=== PATIENT | male | born 1965 | race Caucasian/White ===

== ENCOUNTER 2021-01-05 12:45 | Inpatient (IN) | payer BC, OTHER ==
[~2021-01-05] VITALS: Ht 154.2 cm; Wt 79.4 kg
[2021-01-05] MEDS ORDERED: LORAZEPAM INJ 2 MG/ML VIAL ONE ×2 (12:59→14:30)
[2021-01-05] MEDS ORDERED: LORAZEPAM INJ 2 MG/ML VIAL IVP ONE (13:00)
[2021-01-05] MEDS ORDERED: IV NS 0.9% 1,000 ML BAG IV ONE ×2 (13:00→14:30)
[2021-01-05] MEDS ORDERED: ROSU40TA23 PO (13:02)
[2021-01-05] MEDS ORDERED: CYAN1TAB14 PO (13:02)
[2021-01-05] MEDS ORDERED: POTA-88 PO (13:02)
[2021-01-05] MEDS ORDERED: CLON0.2T PO (13:02)
[2021-01-05 13:12] LABS: BASOPHILS % (AUTO) 0.4 % (0.0-2.0); EOSINOPHILS % (AUTO) 1.7 % (0.0-6.0); HEMATOCRIT 39 % (39-51); HEMOGLOBIN 12.8 g/dL (13.5-17.5); LYMPHOCYTES # (AUTO) 1.2 /CMM (0.8-4.8); LYMPHOCYTES % (AUTO) 33.7 % (20.0-44.0); MEAN CORPUSCULAR HGB CONC 33 g/dl (31.0-36.0); MEAN CORPUSCULAR VOLUME 96 fL (80-96); MONOCYTES # (AUTO) 0.3 /CMM (0.1-1.30); MONOCYTES % (AUTO) 9.5 % (2.0-12.0); NEUTROPHILS % (AUTO) 54.7 % (43.0-81.0); PLATELET COUNT (AUTO) 136 /CMM (150-450); RED BLOOD CELL COUNT(AUTO) 4.03 MIL/uL (4.5-6.0); WHITE BLOOD COUNT (AUTO) 3.6 K/uL (4.3-11.0)
--- NOTE | 2021-01-05 13:20 | NUR ---
ELIZABETH FROM THE STREET TO ER BED 12. AAOX4. NOT IN RESP DISTRESS, BREATHING EVEN AND UNLABORED. BROUGHT IN FOR HAVING A WITNESSED SEIZURE. SEIZURE WAS DESCRIBED TONIC CLONIC. EMT REPORTS GIVING THE PATIENT VERSED 5MG IM. PT REPORTS THAT HE IS A DAILY DRINKER AND HAD TO STOP DRINKING BECAUSE HE HAD A KIDNEY BIOPSY LAST SATURDAY. PT IS NOTED TACHYCARDIC, HYPERTENSIVE AND NOTED TREMORS. MD WAS AT TH BEDSIDE FOR EVAL. ORDERS RECIEVED, NOTED AND CARRIED OUT. IV LINE ESTABLISHED ON L WRIST 20G. PHLEB HAYDER THE BLOOD. PT ON MONITOR AND SEIZURE PRECAUTION. WILL CONTINUE TO MONITOR
[2021-01-05 13:32] LABS: CALCIUM, SERUM 8.8 mg/dL (8.5-10.1); CARBON DIOXIDE 15 mmol/L (21-32); CHLORIDE 97 mmol/L (98-107); CREATININE 1.6 mg/dL (0.6-1.3); GLUCOSE 144 mg/dL (74-106); POTASSIUM 3.3 mmol/L (3.5-5.1); SODIUM SERUM 137 mmol/L (136-145); UREA NITROGEN, BLOOD 12 mg/dL (7-18)
--- NOTE | 2021-01-05 13:33 | NUR ---
TO CT ON CELESTINO
[2021-01-05 13:40] LABS: ALANINE AMINOTRANSFERASE 35 U/L (12-78); ALBUMIN 3.7 g/dL (3.4-5.0); ALKALINE PHOSPHATASE 52 U/L (46-116); ASPARTATE AMINOTRANSFERASE 36 U/L (15-37); BILIRUBIN,DIRECT 0.5 mg/dL (0.0-0.2); BILIRUBIN,TOTAL 2.9 mg/dL (0.2-1.0); TOTAL PROTEIN, SERUM 7.4 g/dL (6.4-8.2)
[2021-01-05 13:41] LABS: ALCOHOL, BLOOD < 3 mg/dL (0-0)
[2021-01-05] MEDS: LORAZEPAM INJ 2 MG/ML VIAL IV ONE (14:32)
--- NOTE | 2021-01-05 14:32 | NUR ---
RECEIVED ORDER TO GIVEN ANOTHER DOSE OF ATIVAN 1MG IV. PT ALREADY RECEIVED A DOSE OF ATIVAN 1MG AND PATIENT IS SEDATED FROM THE FIRST DOSE. MD MADE AWARE. ATIVAN 1MG WAS NOT GIVEN.
--- NOTE | 2021-01-05 16:48 | NUR ---
PT AMBULATED TO BATHROOM W/ SBA. URINE COLLECTED AND SENT TO LAB
[2021-01-05] MEDS ORDERED: MAG HYDROX/AL HYDROX/SIMETH 30 ML UDC PO PRN ×2 (19:00→19:30)
[2021-01-05] MEDS ORDERED: ONDANSETRON HCL/PF 4 MG/2 ML VIAL IVP PRN ×2 (19:00→19:30)
[2021-01-05] MEDS ORDERED: ACETAMINOPHEN 325 MG TABLET PO PRN ×2 (19:00→19:30)
[2021-01-05] MEDS ORDERED: Z GUARD REMEDY 2 OZ OINT TP PRN (19:00)
[2021-01-05] MEDS ORDERED: MAGNESIUM HYDROXIDE 30 ML UDC PO PRN ×2 (19:00→19:30)
[2021-01-05] MEDS ORDERED: LORAZEPAM INJ 2 MG/ML VIAL IV PRN ×2 (19:00→19:30)
--- NOTE | 2021-01-05 19:06 | NUR ---
pt in bed resting with his eyes close. no distress noted.
--- NOTE | 2021-01-05 19:22 | NUR ---
ATIVAN 1MG WASTED ON OMNICELL WELL IN MED DESTROYER BUT ERROR RECORDING 0MG. WASTE WAS WITNESSED BY SAMUEL AMOS
[2021-01-05] MEDS ORDERED: CLONIDINE HCL 0.1 MG TABLET ONE (19:42)
[2021-01-05] MEDS: CLONIDINE HCL 0.1 MG TABLET PO SCH (19:52)
--- NOTE | 2021-01-06 02:30 | NUR ---
REPORT CALLED TO STUDENT DEVELOPMENT ADVISORSAMUEL CONNELL. WILL TRANSPORT PT VIA [facility].
--- NOTE | 2021-01-06 02:46 | NUR ---
PT TRANSFERED PER [facility]
[2021-01-06 02:47] VITALS: BP 149/87
[2021-01-06] MEDS: IV 1/2NS 1000 ML 1,000 ML IV PRN ×2 (04:02→21:47)
[2021-01-06 04:58] VITALS: BP 149/87
[2021-01-06 07:56] VITALS: BP 143/94
--- NOTE | 2021-01-06 08:00 | NUR ---
RECEIVED PT AAOX4. NOT IN RESP DISTRESS, BREATHING EVEN AND UNLABORED ON ROOM AIR. PT REPORTS THAT HE IS A DAILY DRINKER AND HAD TO STOP DRINKING BECAUSE HE HAD A KIDNEY BIOPSY LAST SATURDAY. PT IS NOTED TO HAVE MILD HAND TREMORS. IV LINE HEPLOCK ON L WRIST 20G. WITH IVF 1/2 NS RUNNING AT 75 ML/HR INFUSING WELL. PT ON MONITOR FOR SEIZURE PRECAUTION. WITH PADDED BILATERAL SIDERAILS. AWAITING FOR NEURO CONSULT.WILL CONTINUE TO MONITOR
[2021-01-06] MEDS: ATORVASTATIN 40 MG TABLET PO SCH (09:19)
[2021-01-06] MEDS: CLONIDINE HCL 0.1 MG TABLET PO SCH ×2 (09:19→21:33)
[2021-01-06] MEDS: THIAMINE HCL 100 MG TABLET PO SCH (09:19)
[2021-01-06] MEDS: FOLIC ACID 1 MG TABLET PO SCH (09:19)
[2021-01-06] MEDS: CYANOCOBALAMIN 100 MCG TABLET PO SCH (10:57)
--- NOTE | 2021-01-06 11:24 | NUR ---
Jewelry Making Instructor Consult: SW consult requested by ICU staff for a 55 year old Bulgarian male. JORDAN met with pt at ICU room [address] [place] [address] and conducted an assessment at 10:45 am. Pt made good eye contact during the assessment. Pt. alert and oriented x4 ( time, place, self, and situation). Pt appears to be in a calm mood and distress affect. Pt.'s speech is normal limits without limitations. Pt is responsive during the Pt is groomed and had medial gown. Patient denies hx of substance use. Pt. denies suicidal and homicidal ideation. Pt denies any visual or auditory hallucinations as well. Pt. denies hx of psychiatric hospitalization and psychotropic medications. Pt reports being currently employed ([employer]) and currently resides at an apartment ([address] [place] [id number]- [phone]) with roommate (Nguyen Dodge). Pt reports other support system is up [place], but did not want to explain further. Pt reports not remembering the number and his telephone is at home. Pt also verified current insurance plan ([employer], PPO, [id number]). Pt ambulates with steady gait and has no DME. Pt states he has a plan to return home and continue to work once being medically discharged. SW reassured pt that social insurance adviser is available upon request. Pt denies any service needed at this time. Plan: JORDAN identified pt is not homeless . patient financial services coordinator will be available upon request. Addendum: 01/06/21 at 1200 by DEVON ORTEGA Jewelry Making Instructor Consult: SW consult requested by ICU staff for a 55 year old male. SW met with pt at ICU room 307-T/2 and conducted an assessment at 10:45 am. Pt made good eye contact during the assessment. Pt. alert and oriented x4 ( time, place, self, and situation). Pt appears to be in a calm mood and distress affect. Pt.'s speech is normal limits without limitations. Pt is responsive during the Pt is groomed and had medial gown. Patient denies hx of substance use. Pt. denies suicidal and homicidal ideation. Pt denies any visual or auditory hallucinations as well. Pt. denies hx of psychiatric hospitalization and psychotropic medications. 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 Pt reports other support system is up [place], but did not want to explain further. Pt reports not remembering the number and his telephone is at home. Pt also verified current insurance plan ([employer], PPO, [id number]). Pt ambulates with steady gait and has no DME. Pt states he has a plan to return home and continue to work once being medically discharged. SW reassured pt that social insurance adviser is available upon request. Pt denies any service needed at this time. Plan: JORDAN identified pt is not homeless . patient financial services coordinator will be available upon request.
[2021-01-06 12:10] VITALS: BP 144/96
[2021-01-06 15:58] VITALS: BP 149/100
--- NOTE | 2021-01-06 18:00 | NUR ---
PT SITTING IN BED FIXING HIS BED AT TIMES.WITH NO SEIZURE EPISODE AND DENIES ANY PAIN OR DISTRESS DURING THE SHIFT.WITH ONGOING IVF OF 1/2 NS AT 75 ML/HR INFUSING WELL.CALL LIGHT PLACED WITHIN REACH.
[2021-01-06 20:00] VITALS: BP 133/83
[2021-01-07] VITALS: BP 158/69
[2021-01-07 04:00] VITALS: BP 179/82
--- NOTE | 2021-01-07 06:56 | NUR ---
TANK FARM ATTENDANT CLOSING NOTES: PATIENT IN BED, AWAKE, A/O X4. CALL LIGHT WITHIN REACH. BED IN LOWEST AND LOCKED POSITION. RESTED THROUGHOUT THE SHIFT. NO SEIZURES OVERNIGHT. NO COMPLAIN OF PAIN THROUGHOUT THE SHIFT.
[2021-01-07 08:00] VITALS: BP 168/98
--- NOTE | 2021-01-07 08:00 | NUR ---
DENTAL LABORATORY TECHNICIAN AM NOTES RECEIVED PT AAOX4. NOT IN RESP DISTRESS, BREATHING EVEN AND UNLABORED ON ROOM AIR. WITH OCCASIONAL MILD HAND TREMORS. IV LINE HEPLOCK ON L WRIST 20G. WITH IVF 1/2 NS RUNNING AT 75 ML/HR INFUSING WELL. PT ON MONITOR FOR SEIZURE PRECAUTION. WITH PADDED BILATERAL SIDERAILS. AWAITING FOR NEURO CONSULT.WILL CONTINUE TO MONITOR
[2021-01-07 09:26] VITALS: BP 168/98
[2021-01-07] MEDS: THIAMINE HCL 100 MG TABLET PO SCH (09:26)
[2021-01-07] MEDS: CLONIDINE HCL 0.1 MG TABLET PO SCH (09:26)
[2021-01-07] MEDS: ATORVASTATIN 40 MG TABLET PO SCH (09:26)
[2021-01-07] MEDS: FOLIC ACID 1 MG TABLET PO SCH (09:26)
[2021-01-07] MEDS: CYANOCOBALAMIN 100 MCG TABLET PO SCH (09:26)
[2021-01-07] MEDS ORDERED: LEVETIRACETAM (500MG) 1,000 MG in IV NS 0.9% 100 ML IV SCH (13:30)
[2021-01-07] MEDS ORDERED: INFLUENZA VACCINE 2020-21 0.5 ML DISP.SYRIN IM ONE (13:30)
[2021-01-07] MEDS ORDERED: LEVETIRACETAM (500MG) 1,000 MG in IV NS 0.9% 100 ML IV ONE (14:00)
--- NOTE | 2021-01-07 15:30 | NUR ---
DISCHARGE PT HOME WITH STABLE V/S. DISCHARGE INSTRUCTIONS,PRESCRIPTIONS AND PMD FOLLOW UP INSTRUCTIONS GIVEN TO THE PT.IV H/L REMOVED TO LT WRIST HEPLOCK WITH NO BLEEDING OR SWELLING NOTED.
== END 2021-01-07 16:00 | disposition home or self-care (01) | DRG 101 ==
LOC: ER 12:49 → TRANSITION 14:56 → TELE 01-06 01:52 → MED 01-07 12:41
PROVIDERS: ADMIT Internal Medicine; ATTEND Internal Medicine
DX: G40.909 Epilepsy, unspecified, not intractable, without status epilepticus (principal); F10.239 Alcohol dependence with withdrawal, unspecified; C64.9 Malignant neoplasm of unspecified kidney, except renal pelvis; Y90.0 Blood alcohol level of less than 20 mg/100 ml; I10 Essential (primary) hypertension; Z79.899 Other long term (current) drug therapy
CPT/HCPCS: 36415; 70450-TC; 71045-TC; 80048-TC; 80076-TC; 80177; 83605-TC; 83735-TC; 84484-TC; 85025-TC; 85730-TC; 87081-TC; 95819-TC; G0378; G0480; J1953; J2060; J2405; J3490; J7030; Q2036

== ENCOUNTER 2023-09-13 08:19 | Emergency (ER) | payer BC, OTHER ==
[~2023-09-13] VITALS: Ht 170.2 cm; Wt 74.8 kg
[~2023-09-13 08:19] MED LIST: CLON0.2T PO; CYAN1TAB14 PO; POTA-88 PO; ROSU40TA23 PO
[2023-09-13 10:16] VITALS: BP 132/94; TEMP 98.1; O2SAT 99
== END 2023-09-13 10:16 | disposition home or self-care (01) ==
LOC: ER 08:25
DX: K64.5 Perianal venous thrombosis (principal); I10 Essential (primary) hypertension
CPT/HCPCS: 99282; A6253; A6403

== ENCOUNTER 2025-03-08 08:21 | Emergency (ER) | payer BC ==
[~2025-03-08] VITALS: Ht 170.2 cm; Wt 72.6 kg
[2025-03-08] MEDS ORDERED: IBUP-1490 PO (10:11)
[2025-03-08 10:25] VITALS: BP 109/85; TEMP 98.3; O2SAT 100
== END 2025-03-08 10:37 | disposition home or self-care (01) ==
LOC: ER 08:25
DX: S82.831A Other fracture of upper and lower end of right fibula, initial encounter for closed fracture (principal); I10 Essential (primary) hypertension; Z79.899 Other long term (current) drug therapy; W01.0XXA Fall on same level from slipping, tripping and stumbling without subsequent striking against object, initial encounter; Y93.89 Activity, other specified; Y92.89 Other specified places as the place of occurrence of the external cause; Y99.8 Other external cause status
CPT/HCPCS: 73610-TC; 73630-TC

== ENCOUNTER 2025-08-23 17:48 | Inpatient (IN) | payer BC ==
[~2025-08-23] VITALS: Ht 170.2 cm; Wt 68.9 kg
[~2025-08-23 17:48] MED LIST changes: +IBUP-1490 PO
[2025-08-23] MEDS: IV NS 0.9% 1,000 ML BAG IV ONE (18:20)
[2025-08-23 18:33] LABS: PLATELET COUNT (AUTO) 109 K/uL (150-450); RED BLOOD CELL COUNT(AUTO) 3.79 MIL/uL (4.5-6.0); RED CELL DISTRIBUTION WIDTH 17.2 % (11.5-15.0); WHITE BLOOD COUNT (AUTO) 3.6 K/uL (4.3-11.0)
[2025-08-23 18:41] LABS: INR 1.01 (0.91-1.10)
[2025-08-23 18:45] LABS: ASPARTATE AMINOTRANSFERASE 31 U/L (15-37); CALCIUM, SERUM 8.1 mg/dL (8.5-10.1); CREATININE 1.7 mg/dL (0.6-1.3); SODIUM SERUM 140 mmol/L (136-145); TOTAL PROTEIN, SERUM 7.6 g/dL (6.4-8.2); UREA NITROGEN, BLOOD 17 mg/dL (7-18)
[2025-08-23 18:48] LABS: LACTIC ACID 1.1 mmol/L (0.4-2.0)
[2025-08-23] MEDS ORDERED: AMLO-213 PO (18:53)
[2025-08-23] MEDS ORDERED: LOSA100T31 PO (18:53)
[2025-08-23] MEDS ORDERED: POTASSIUM CL. PREMIX PERIPHER. 50 ML ONE ×3 (19:09→21:03)
[2025-08-23] MEDS: POTASSIUM CL. PREMIX PERIPHER. 50 ML IV SCH (19:15)
[2025-08-23] MEDS ORDERED: Magnesium 1GM/D5W 100ML PREMIX 100 ML IV ONE ×2 (19:44→20:30)
[2025-08-23] MEDS: Magnesium 1GM/D5W 100ML PREMIX 100 ML IV SCH (19:49)
[2025-08-23 20:25] LABS: CREATINE KINASE, TOTAL 183.0 U/L (39-308)
[2025-08-23] MEDS ORDERED: LORAZEPAM 4 MG/ML VIAL IV PRN (20:30)
[2025-08-23] MEDS ORDERED: ONDANSETRON HCL/PF 4 MG/2 ML VIAL IVP PRN (20:30)
[2025-08-23] MEDS ORDERED: LORAZEPAM 0.5 MG TABLET PO PRN (20:30)
[2025-08-23] MEDS ORDERED: ACETAMINOPHEN 325 MG TABLET PO PRN (20:30)
[2025-08-23 20:39] LABS: ALCOHOL, BLOOD 0 mg/dL (0-10)
[2025-08-23] MEDS ORDERED: LORAZEPAM INJ 2 MG/ML VIAL IVP PRN (21:00)
[2025-08-23 21:31] LABS: APPEARANCE,URINE CLEAR (CLEAR); BLOOD, URINE 2+ Ery/uL (NEGATIVE); LEUKOCYTE ESTERASE ,URINE NEGATIVE (NEGATIVE); NITRITE, URINE NEGATIVE (NEGATIVE); UGLUCOSE NEGATIVE (NEGATIVE)
[2025-08-23 21:37] LABS: AMPHETAMINE, URINE NEGATIVE (NEGATIVE); BARBITURATE, URINE NEGATIVE (NEGATIVE); BENZODIAZEPINE, URINE NEGATIVE (NEGATIVE); CANNABINOID, URINE NEGATIVE (NEGATIVE); COCCAINE, URINE NEGATIVE (NEGATIVE); OPIATE, URINE NEGATIVE (NEGATIVE)
[2025-08-23 21:42] LABS: ADD URINE CULTURE NO
[2025-08-23 22:00] VITALS: BP 116/80; TEMP 98.4; O2SAT 100
[2025-08-23] MEDS: ATORVASTATIN 40 MG TABLET PO SCH (22:00)
[2025-08-23] MEDS: Thiamine 100 MG in IV D5W 50 ML IV ONE (23:15)
[2025-08-24 04:00] VITALS: BP 113/82; TEMP 98.1; O2SAT 98
[2025-08-24 05:51] LABS: RED BLOOD CELL COUNT(AUTO) 3.31 MIL/uL (4.5-6.0); RED CELL DISTRIBUTION WIDTH 17.1 % (11.5-15.0); WHITE BLOOD COUNT (AUTO) 2.8 K/uL (4.3-11.0)
[2025-08-24 06:04] LABS: CALCIUM, SERUM 7.3 mg/dL (8.5-10.1); CREATININE 1.5 mg/dL (0.6-1.3); PHOSPHORUS 1.7 mg/dL (2.5-4.9); SODIUM SERUM 143.0 mmol/L (136-145); UREA NITROGEN, BLOOD 14.0 mg/dL (7-18)
[2025-08-24 06:18] LABS: PLATELET COUNT (AUTO) 38 K/uL (150-450)
[2025-08-24] MEDS: PANTOPRAZOLE 40 MG TABLET.DR PO SCH (07:30)
[2025-08-24] MEDS: Magnesium 1GM/D5W 100ML PREMIX 100 ML IV SCH (07:38)
[2025-08-24] MEDS: POTASSIUM CL. PREMIX PERIPHER. 50 ML IV SCH (07:38)
[2025-08-24 07:55] LABS: EOSINOPHILS % (MANUAL) 2 % (0-4); LYMPHOCYTES % (MANUAL) 57 % (16-48); MONOCYTES % (MANUAL) 3 % (0-11.0); NEUTROPHILS % (MANUAL) 38 (42-76); PLATELET ESTIMATE DECREASED
[2025-08-24 08:00] VITALS: BP 113/82; TEMP 98.2; O2SAT 100
[2025-08-24 09:04] LABS: ASPARTATE AMINOTRANSFERASE 26.0 U/L (15-37); TOTAL PROTEIN, SERUM 6.2 g/dL (6.4-8.2)
[2025-08-24] MEDS: AMLODIPINE BESYLATE 10 MG TABLET PO SCH (10:14)
[2025-08-24] MEDS: MULTIVIT W/MINERALS 1 TAB TABLET PO SCH (10:14)
[2025-08-24] MEDS: DOCUSATE SODIUM 100 MG CAPSULE PO SCH (10:14)
[2025-08-24] MEDS: FOLIC ACID 1 MG TABLET PO SCH (10:14)
[2025-08-24] MEDS: THIAMINE HCL 100 MG TABLET PO SCH (10:14)
[2025-08-24 12:00] VITALS: BP 105/67; TEMP 99; O2SAT 100
[2025-08-24 14:24] LABS: CALCIUM, SERUM 8.0 mg/dL (8.5-10.1); CREATININE 1.5 mg/dL (0.6-1.3); SODIUM SERUM 142.0 mmol/L (136-145); UREA NITROGEN, BLOOD 12.0 mg/dL (7-18)
[2025-08-24] MEDS: K PHOS NEUTRAL 250 MG TABLET PO ONE (15:48)
[2025-08-24 16:00] VITALS: BP 100/70; TEMP 99; O2SAT 98
[2025-08-24 19:32] LABS: CALCIUM, SERUM 7.8 mg/dL (8.5-10.1); CREATININE 1.6 mg/dL (0.6-1.3); PHOSPHORUS 2.3 mg/dL (2.5-4.9); SODIUM SERUM 139.0 mmol/L (136-145); UREA NITROGEN, BLOOD 15.0 mg/dL (7-18)
[2025-08-24 20:00] VITALS: BP 100/76; TEMP 98.2; O2SAT 97
[2025-08-25] VITALS: BP 110/78; TEMP 98.3; O2SAT 99
[2025-08-25 04:00] VITALS: BP 112/82; TEMP 97.9; O2SAT 98
[2025-08-25 06:18] LABS: ASPARTATE AMINOTRANSFERASE 32.0 U/L (15-37); CALCIUM, SERUM 8.2 mg/dL (8.5-10.1); CREATININE 1.4 mg/dL (0.6-1.3); PHOSPHORUS 2.6 mg/dL (2.5-4.9); SODIUM SERUM 142.0 mmol/L (136-145); TOTAL PROTEIN, SERUM 6.4 g/dL (6.4-8.2); UREA NITROGEN, BLOOD 16.0 mg/dL (7-18)
[2025-08-25 06:29] LABS: CREATINE KINASE, TOTAL 791.0 U/L (39-308)
[2025-08-25 07:06] LABS: RED BLOOD CELL COUNT(AUTO) 3.30 MIL/uL (4.5-6.0); RED CELL DISTRIBUTION WIDTH 17.2 % (11.5-15.0); WHITE BLOOD COUNT (AUTO) 2.9 K/uL (4.3-11.0)
[2025-08-25 07:33] LABS: PLATELET COUNT (AUTO) 43 K/uL (150-450)
[2025-08-25] MEDS: IV NS 0.9% 1,000 ML IV SCH (08:01)
[2025-08-25 08:08] VITALS: BP 129/89; TEMP 97.9; O2SAT 97
[2025-08-25 08:34] LABS: EOSINOPHILS % (MANUAL) 5 % (0-4); LYMPHOCYTES % (MANUAL) 47 % (16-48); MONOCYTES % (MANUAL) 5 % (0-11.0); NEUTROPHILS % (MANUAL) 43 (42-76)
[2025-08-25 08:35] LABS: PLATELET ESTIMATE DECREASED
[2025-08-25] MEDS: POTASSIUM CHLORIDE 20 MEQ TAB.PRT.SR PO ONE (09:12)
[2025-08-25] MEDS: MAGNESIUM OXIDE 400 MG TABLET PO ONE (10:39)
[2025-08-25 12:05] VITALS: BP 108/83; TEMP 98.1; O2SAT 97
[2025-08-25] MEDS ORDERED: FOLI0.4T6 PO (13:41)
[2025-08-25] MEDS ORDERED: THIA100T88 PO (13:41)
[2025-08-25 16:05] VITALS: BP 113/76; TEMP 98; O2SAT 98
[2025-08-26 06:11] LABS: PTH, INTACT 62 pg/mL (15-65)
== END 2025-08-25 18:00 | disposition home or self-care (01) | DRG 897 ==
LOC: ER 17:58 → TELE1 20:02 → MEDSG1 08-25 15:14
PROVIDERS: ADMIT Registered Nurse Psychiatric/Mental Health
DX: F10.139 Alcohol abuse with withdrawal, unspecified (principal); D61.818 Other pancytopenia; N17.9 Acute kidney failure, unspecified; I12.9 Hypertensive chronic kidney disease with stage 1 through stage 4 chronic kidney disease, or unspecified chronic kidney disease; N18.9 Chronic kidney disease, unspecified; E83.42 Hypomagnesemia; E87.6 Hypokalemia; D69.6 Thrombocytopenia, unspecified; K74.60 Unspecified cirrhosis of liver; Y90.0 Blood alcohol level of less than 20 mg/100 ml; Z85.528 Personal history of other malignant neoplasm of kidney; Z98.890 Other specified postprocedural states; Z79.899 Other long term (current) drug therapy; E78.5 Hyperlipidemia, unspecified; E80.6 Other disorders of bilirubin metabolism; Z91.81 History of falling; Z90.5 Acquired absence of kidney; M89.8X9 Other specified disorders of bone, unspecified site; Z87.19 Personal history of other diseases of the digestive system; Z90.49 Acquired absence of other specified parts of digestive tract
CPT/HCPCS: 36415; 70450-TC; 71045-TC; 76700-TC; 80048-TC; 80053-TC; 80076-TC; 81001; 82550-TC; 82553; 83605-TC; 83735-TC; 83970; 84100-TC; 84155; 84165; 84443-TC; 84484-TC; 85025-TC; 85027-TC; 85730-TC; 97110-TC; 97112-TC; 97116-TC; 97530-TC; 97535-TC; A4223; G0378; G0480; J2060; J3411; J3475; J3480; J7030; J7040; J7050; J7060